=== PATIENT | female | born 1990 | race Caucasian/White ===

== ENCOUNTER 2017-01-30 02:56 | Emergency (ER) | payer OTHER ==
[~2017-01-30] VITALS: Ht 162.6 cm; Wt 104.0 kg
[~2017-01-30 02:56] MED LIST: METHOCARBAMOL500 MG PO; MOTRIN800 MG PO; VALIUM5 MG PO; VICODIN 5-3001 EACH PO
[2017-01-30 03:00] VITALS: BP 126/78
[2017-01-30 04:59] LABS: EOSINOPHIL (%) 1.5 % (0-5); EOSINOPHIL COUNT 0.2 K/uL (0-0.3); HEMATOCRIT 37.8 % (36.0-46.0); IMMATURE GRANULOCYTE (%) 0.4 % (0.0-0.7); INSTRUMENT ABS NEUTROPHIL CT 6.1 K/uL; LYMPHOCYTE COUNT 2.9 K/uL (1.0-2.8); MCH 28.4 PG (29.0-34.0); MCHC 33.1 G/DL (30.0-36.0); MCV 85.9 FL (83-99); MEAN PLAT.VOLUME 9.4 uM^3 (9.5-12.4); MONOCYTE (%) 7.3 % (3-12); MONOCYTE COUNT 0.7 K/uL (0-0.8); NEUTROPHIL (%) 61.7 % (45-76); NEUTROPHIL COUNT 6.1 K/uL (1.8-6.4); PLATELET COUNT 275 K/uL (156-360); RBC DIS.WIDTH-CV 12.3 % (11.8-14.6); RBC DIS.WIDTH-SD 38.9 % (39-53); WHITE BLOOD COUNT 9.9 K/uL (4.1-10.2)
[2017-01-30 05:07] LABS: PROTHROMBIN TIME 10.5 (9.2-11.2); PTT 28.9 (25-32)
[2017-01-30 05:11] LABS: CHLORIDE 103 mEq/L (99-109); POTASSIUM 3.7 mEq/L (3.7-5.4); SODIUM 138 mEq/L (136-147)
[2017-01-30 05:14] LABS: GLUCOSE 96 mg/dL (70-99)
[2017-01-30 05:15] LABS: ANION GAP 12 MEQ/L (2-14)
[2017-01-30 05:16] LABS: TOTAL BILIRUBIN 0.2 mg/dL (0.0-1.0)
[2017-01-30 05:17] LABS: ALKALINE PHOSPHATASE 90 IU/L (3-129); GFR ESTIMATE (CALCULATED) > 59 mL/min/
[2017-01-30 05:18] LABS: UREA NITROGEN (BUN) 8 mg/dL (9-23)
[2017-01-30] MEDS ORDERED: INDOCIN25 MG PO (06:12)
[2017-01-30] MEDS ORDERED: AUGMENTIN875 MG PO (06:12)
== END 2017-01-30 06:24 | disposition home or self-care (01) ==
LOC: EME 02:56
PROVIDERS: Physician Assistant
DX: H66.92 Otitis media, unspecified, left ear (principal); K11.20 Sialoadenitis, unspecified; M35.00 Sjogren syndrome, unspecified
CPT/HCPCS: 70491; 80053; 85025; 85610; 85730; 99281; 99284; J1885; J7030